=== PATIENT | female | born 1975 | race Caucasian/White ===

== ENCOUNTER 2024-04-21 06:02 | Day surgery (SDC) | payer OTHER ==
[~2024-04-21] VITALS: Ht 177.8 cm; Wt 84.1 kg
[~2024-04-21 06:02] MED LIST: LR 1,000 ML IV SCH; Ondansetron 4 MG/2 ML VIAL IV PRN
[2024-04-21] MEDS ORDERED: MULTI VITAMINS1 TAB PO (06:37)
[2024-04-21] MEDS ORDERED: MAGNESIUM500 MG PO (06:37)
[2024-04-21] MEDS ORDERED: [UNRECOGNIZED DRUG - OTHER] PO (06:43)
[2024-04-21 06:44] VITALS: BP 106/82; PULSE 76; TEMP 97
[2024-04-21 08:15] VITALS: BP 102/91; PULSE 66; TEMP 97.1
[2024-04-21 08:30] VITALS: BP 99/65; PULSE 66
[2024-04-21 08:45] VITALS: BP 102/64; PULSE 68
--- NOTE | 2024-04-21 09:10 | NUR ---
0815 RETURNS TO ROOM 3 PER CART. AWAKE, ALERT. RESP UNLABORED. AMBULATES TO RECLINER WITH STANDBY ASSIST. DENIES NAUSEA OR ABD PAIN. VITAL SIGNS OBTAINED. CALL LIGHT AT SIDE. IN ROOM 0830 TOLERATES PO SODA AND MUFFIN WITHOUT NAUSEA 0840 DISCHARGE INSTRUCTIONS REVIEWED. PATIENT VERBALIZES UNDERSTANDING. COPY PROVIDED IN DISCHARGE FOLDER 16[address] DR LOCKWOOD HERE TO VISIT WITH PATIENT 0900 DRESSES SELF
== END 2024-04-21 09:10 | disposition home or self-care (01) ==
LOC: SDCO 06:02
DX: Z12.11 Encounter for screening for malignant neoplasm of colon (principal)
CPT/HCPCS: J2704; J7120